=== PATIENT | female | born 1990 ===

== ENCOUNTER 2022-03-21 03:16 | Inpatient (IN) | payer SELFPAY ==
[2022-03-21] MEDS ORDERED: ACETAMINOPHEN 325 MG TAB PO PRN ×2 (04:13→13:16)
[2022-03-21] MEDS ORDERED: fentaNYL 100 MCG/2 ML INJ IV PRN (04:13)
[2022-03-21] MEDS ORDERED: TERBUTALINE 1 MG/1 ML INJ SUB-Q PRN (04:13)
[2022-03-21] MEDS ORDERED: MINERAL OIL 30 ML ORAL LIQD PO PRN (04:13)
[2022-03-21] MEDS ORDERED: miSOPROStol 200 MCG TAB PR PRN (04:13)
[2022-03-21] MEDS ORDERED: OXYTOCIN 10 UNIT/1 ML INJ IM PRN (04:13)
[2022-03-21] MEDS ORDERED: LOPERAMIDE 2 MG CAP PO PRN (04:13)
[2022-03-21] MEDS ORDERED: ePHEDrine SULFATE 50 MG/1 ML INJ IV PRN (04:13)
[2022-03-21] MEDS ORDERED: LIDOCAINE (2%) 20 MG/1 ML VIAL 20 ML MDV INFILTRATI ONE ×2 (04:13→09:44)
[2022-03-21] MEDS ORDERED: METHYLERGONOVINE MALEATE 0.2 MG/ML VIAL IM PRN (04:13)
[2022-03-21] MEDS ORDERED: NalbUPHINE 10 MG/1 ML INJ IV PRN (04:13)
[2022-03-21] MEDS ORDERED: CARBOPROST TROMETHAMINE 250 MCG/1 ML INJ IM PRN (04:13)
[2022-03-21] MEDS ORDERED: LACTATED RINGERS 1,000 ML IV SCH (04:15)
--- NOTE | 2022-03-21 04:24 | History and Physical Report ---
History of Present Illness Date of examination: 03/21/22 Date of admission: 03/21/22 Chief complaint: Contractions History of present illness: 32 year old presents to L&D with contractions and active labor. Patient received care at [facility] and she brings records with her. LMP 06/20/21. EDC 03/27/22. significant for the following: anemia. labs are as follows: A+, antibody screen negative, rubella immune, hepatitis B surface antigen negative, HIV negative, RPR nonreactive, gonorrhea negative, chlamydia negative, GBS negative, 1 hour sugar test WNL, quad screen negative, pap smear negative. Past History Past Medical History: other (anemia, treated with iron) Past Surgical History: no surgical history [employer] History: denies: abnormal PAP smear, chlamydia, gonorrhea, hepatitis B, hepatitis C, herpes, HIV, syphilis, trichomonas Family/Genetic History: none Social history: lives with family, full code. denies: smoking, alcohol abuse, prescription drug abuse, IV drug use - Obstetrical History Expected Date of Delivery: 03/27/22 Actual Gestation: 39 Week(s) 1 Day(s) : 2 Para: 1 Hx # Term Pregnancies: 1 Number of Pregnancies: 0 Spontaneous Abortions: 0 Induced : 0 Number of Living Children: 1 Medications and Allergies Allergies Allergy/AdvReac Type Severity Reaction Status Date / Time No Known Allergies Allergy Unverified 03/21/22 03:24 Active Meds: Active Medications Acetaminophen (Acetaminophen 325 Mg Tab) 650 mg PO Q4H PRN PRN Reason: Pain, Mild (1-3) Carboprost Tromethamine (Carboprost Tromethamine 250 Mcg/1 Ml Inj) 250 mcg IM ONCE PRN PRN Reason: Uterine Bleeding Ephedrine Sulfate (Ephedrine Sulfate 50 Mg/1 Ml Inj) 10 mg IV Q2M PRN PRN Reason: Hypotension Fentanyl (Fentanyl 100 Mcg/2 Ml Inj) 100 mcg IV Q2H PRN PRN Reason: Pain,Severe (7-10) LABOR PAIN Oxytocin/Sodium Chloride (Pitocin/Ns 30 Unit/500ml) 30 units in 500 mls @ 2 mls/hr IV TITR ZACARIAS; Protocol Lactated Ringer's (Lactated Ringers) 1,000 mls @ 125 mls/hr IV DIRECT ZACARIAS Oxytocin/Sodium Chloride (Pitocin/Ns 30 Unit/500ml) 30 units in 500 mls @ 40 mls/hr IV TITR ZACARIAS; Protocol Lidocaine (Lidocaine (2%) 20 Mg/1 Ml Vial 20 Ml Mdv) 20 ml INFILTRATI ONCE ONE Stop: 03/21/22 04:14 Loperamide HCl (Loperamide 2 Mg Cap) 2 mg PO ONCE PRN PRN Reason: give with Hemabate Methylergonovine Maleate (Methylergonovine Maleate 0.2 Mg/Ml Vial) 0.2 mg IM ONCE PRN PRN Reason: Uterine Bleeding Mineral Oil (Mineral Oil 30 Ml Oral Liqd) 30 ml PO QHS PRN PRN Reason: Constipation Misoprostol (Misoprostol 200 Mcg Tab) 800 mcg UT ONCE PRN PRN Reason: Uterine Bleeding Nalbuphine HCl (Nalbuphine 10 Mg/1 Ml Inj) 10 mg IV Q2H PRN PRN Reason: Pain, Moderate (4-6) Oxytocin (Oxytocin 10 Unit/1 Ml Inj) 10 unit IM ONCE PRN PRN Reason: Uterine Bleeding Terbutaline Sulfate (Terbutaline 1 Mg/1 Ml Inj) 0.25 mg SUB-Q ONCE PRN PRN Reason: Hyperstimulation/Hypertonicity Review of Systems All systems: negative (contractions) - Vital Signs Vital signs: Vital Signs Pulse Pulse Ox 85 97 03/21/22 03:32 03/21/22 03:32 Temp Pulse Resp BP Pulse Ox 77 98 03/21/22 04:12 03/21/22 04:12 - Physical Exam Abdomen: Positive: normal appearance, soft. Negative: distention, tenderness, g uarding, rigidity Genitourinary (Female): Positive: normal external genitalia, normal perenium. Negative: perineal/vulvar lesions Vagina: Positive: normal moisture Uterus: Positive: enlarged. Negative: tender Anus/Rectum: Positive: normal perianal skin Extremities: Negative: tenderness, edema - Obstetrical FHR: category 1 Uterine Contraction Monitor Mode: External Cervical Dilatation: 5 Cervical Effacement Percentage: 100 station: -1 Uterine Contraction Pattern: Regular Uterine Contraction Intensity: Moderate Results All other labs normal. Assessment and Plan A: at 39 weeks, 1 day gestation. Active labor. GBS negative. P: Admit. EFM. Epidural if desired. Anticipate vaginal .
[2022-03-21 04:31] LABS: Hematocrit 36.2 % (30.3-42.9); Hemoglobin 12.1 gm/dl (10.1-14.3); Mean Corpuscular HGB Conc 33 % (30-34); Mean Corpuscular Volume 91 fl (79-97); Platelet Count 179 K/mm3 (140-440); Red Blood Count 3.99 M/mm3 (3.65-5.03); Red Cell Distribution Width 14.7 % (13.2-15.2)
[2022-03-21] MEDS ORDERED: LIDOCAINE MPF (2%) 20 MG/1 ML VIAL 5 ML ONE (04:43)
[2022-03-21] MEDS ORDERED: OXYTOCIN DRIP 30 UNITS/500 ML BAG IV SCH ×3 (05:00→13:16)
--- NOTE | 2022-03-21 05:13 | Anesthesia Consultation ---
Anesthesia Consult and Med Hx - Airway Anesthetic Teeth Evaluation: Good ROM Head & Neck: Adequate Mental/Hyoid Distance: Adequate Mallampati Class: Class I Intubation Access Assessment: Probably Good - Pulmonary Exam CTA: Yes - Cardiac Exam Cardiac Exam: RRR - Pre-Operative Health Status ASA Pre-Surgery Classification: ASA2 Proposed Anesthetic Plan: Epidural - Pulmonary Hx Smoking: No Hx Asthma: No - Cardiovascular System Hx Hypertension: No - Central Nervous System Hx Seizures: No Hx Psychiatric Problems: No - Endocrine Hx Renal Disease: No Hx Hypothyroidism: No Hx Hyperthyroidism: No - Hematic Hx Anemia: No Hx Sickle Cell Disease: No - Other Systems Hx Alcohol Use: No
[2022-03-21] MEDS ORDERED: NALOXONE 0.4 MG/1 ML INJ IV PRN (05:14)
--- NOTE | 2022-03-21 05:19 | Progress Note ---
Regional Anesthesia Block - Regional Anesthesia Block Start Time: 04:58 Stop Time: 05:01 Performed By:: MIKA EASON Procedure: L3-4 space Identified, prep and drape NSF. Local to skin, introducer, ROLY saline and air at 5cm. Cath placed to 10 cm, neg aspiration, neg test dose. Sterile dressing, sampson well. Touhy 17g with 19 ga cath.
[2022-03-21] MEDS ORDERED: fentaNYL-BUPIV 2 MCG/ML-0.125% 200 MCG/100 ML BAG EPIDURAL SCH ×2 (06:00)
--- NOTE | 2022-03-21 07:11 | Event Note ---
Date: 03/21/22 SVE /-1.
--- NOTE | 2022-03-21 08:14 | Event Note ---
Date: 03/21/[address] De Souza at 07:46.
--- NOTE | 2022-03-21 10:02 | Procedure Note ---
OB Delivery Note - Delivery Date of Delivery: 03/21/22 Estimated blood loss: 300cc - Vaginal Delivery presentation: vertex Delivery position: OA Delivery induction: none Delivery augmentation: rupture of membranes Delivery monitor: external FHT, external uterine Route of delivery: Delivery placenta: spontaneous Delivery cord: 3 umbilical vessels Episiotomy: none Delivery laceration: 1st degree, 2nd degree, other (cervical laceration repaired with 0-vicryl x 2 figure of 8 sutures) Anesthesia: local, epidural - Infant A at 1 minute: 8 at 5 minutes: 9 Infant Gender: Male (wt 3130g)
[2022-03-21] MEDS ORDERED: miSOPROStol 25 MCG TAB PO PRN (12:17)
[2022-03-21] MEDS ORDERED: PROMETHAZINE 25 MG RECT SUPP PR PRN (13:16)
[2022-03-21] MEDS ORDERED: MAGNESIUM HYDROXIDE (MOM) ORAL LIQD UDC PO PRN (13:16)
[2022-03-21] MEDS ORDERED: PROMETHAZINE 25 MG TAB PO PRN (13:16)
[2022-03-21] MEDS ORDERED: oxyCODONE /ACETAMINOPHEN 5-325MG TAB PO PRN (13:16)
[2022-03-21] MEDS ORDERED: LANOLIN/ZINC/DIMETHICONE (LANSINOH) 7 GM TP PRN (13:16)
[2022-03-21] MEDS ORDERED: WITCH HAZEL/ GLYCERIN PAD TP PRN (13:16)
[2022-03-21] MEDS ORDERED: ONDANSETRON 4 MG/2 ML INJ IV PRN (13:16)
[2022-03-21] MEDS ORDERED: diphenhydrAMINE 25 MG CAP PO PRN (13:16)
[2022-03-21] MEDS ORDERED: BENZOCAINE/MENTHOL 20/0.5% TOP SPRAY 56 GM TP PRN (16:39)
[2022-03-21] MEDS ORDERED: IBUPROFEN 800 MG TAB PO PRN (18:54)
[2022-03-22 02:31] LABS: Hematocrit 32.2 % (30.3-42.9); Hemoglobin 10.4 gm/dl (10.1-14.3); Mean Corpuscular HGB Conc 32 % (30-34); Mean Corpuscular Volume 91 fl (79-97); Platelet Count 162 K/mm3 (140-440); Red Blood Count 3.54 M/mm3 (3.65-5.03); Red Cell Distribution Width 15.1 % (13.2-15.2)
--- NOTE | 2022-03-22 07:43 | Post Anesthesia Evaluation ---
- Post Anesthesia Evaluation Patient Participated: Yes Airway Patent: Yes Stable Respiratory Function: Yes Nausea/Vomiting: No Temp > 96.8F: Yes Pain Manageable: Yes Adequeate Hydration: Yes Anesthesia Complications: No Block Receding Appropriately: Yes Patient on Ventilator: No
[2022-03-22] MEDS ORDERED: FERROUS SULFATE 325 MG TAB PO SCH (10:00)
--- NOTE | 2022-03-22 11:13 | Progress Note ---
Assessment and Plan A: day 1 S/P . Anemia. P: Supplement with iron. Anticipate discharge home tomorrow morning if patient continues to do well. Subjective - Subjective Date of service: 03/22/22 Principal diagnosis: day 1 S/P Patient reports: appetite normal, voiding normally, pain well controlled, flatus, ambulating normally, no dizzy ambulation, no nauseated [place]: doing well Objective - Vital Signs Latest vital signs: Vital Signs Temp Pulse Resp BP BP Pulse Ox Pulse Ox 03/22/22 07:23 97.7 F 83 18 99/64 98 03/22/22 05:30 98 03/22/22 04:20 98 03/22/22 01:30 98 03/22/22 00:54 97.8 F 91 H 18 103/71 99 03/21/22 23:15 98 03/21/22 21:30 98 03/21/22 20:43 98.0 F 92 H 18 106/68 97 03/21/22 19:35 98 03/21/22 16:50 99.0 F 92 H 20 100/56 99 03/21/22 16:48 20 03/21/22 13:22 100 03/21/22 13:05 98.9 F 105 H 20 101/69 100 03/21/22 11:57 97 H 99 03/21/22 11:52 78 98 03/21/22 11:47 82 100 03/21/22 11:46 88 111/64 03/21/22 11:42 86 98 03/21/22 11:37 75 98 03/21/22 11:32 83 97 03/21/22 11:31 83 110/66 03/21/22 11:27 84 97 03/21/22 11:22 85 98 03/21/22 11:17 89 98 03/21/22 11:16 88 111/70 03/21/22 11:12 83 99 Intake and Output 03/21/22 03/22/22 03/22/22 23:59 07:59 15:59 Intake Total 300 240 120 Output Total 620 250 Balance -320 -10 120 Intake: Oral 300 240 120 Output: Urine 620 250 Void 620 250 Other: Total, Intake Amount 120 120 120 Total, Output Amount 300 250 # Voids Void 1 1 1 - Exam Cardiovascular: Present: Regular rate Lungs: Present: Clear to auscultation Abdomen: Present: normal appearance, soft. Absent: distention, tenderness, guarding, rigidity Uterus: Present: normal, firm, fundal height below umbilicus (fundus firm and midline at 2 FB below umbilicus). Absent: bogginess, tenderness Extremities: Absent: tenderness - Labs Labs: Abnormal lab results 03/21/22 Range/Units 23:13 WBC 12.3 H (4.5-11.0) K/mm3 RBC 3.54 L (3.65-5.03) M/mm3
--- NOTE | 2022-03-22 12:52 | Event Note ---
Date: 03/22/22 Patient requests discharge home today as baby is being discharged today. Discussed with patient discharge instructions and warning signs. Advised patient to continue taking her vitamin and iron supplements at home. Advised patient to follow up at [facility] in 2 weeks.
--- NOTE | 2022-03-22 12:54 | Discharge Summary ---
Providers - Providers Date of Admission: 03/21/22 04:13 Date of discharge: 03/22/22 Attending physician: LORRAINE DARDEN Primary care physician: LORRAINE DARDEN Hospitalization Reason for admission: active labor Delivery: Laceration: 1st degree, 2nd degree Other procedures: none complications: none Discharge diagnosis: IUP at term delivered baby: male Pertinent studies: Labs Hospital course: Stable hospital course Condition at discharge: Good Disposition: 01 HOME / SELF CARE / HOMELESS - Discharge Diagnoses (1) Term delivered Status: Acute Plan - Provider Discharge Summary Activity: routine, no sex for 6 weeks, no heavy lifting 4 weeks, no strenuous exercise Diet: routine Instructions: routine Additional instructions: Continue taking your vitamin and iron supplements at home. Follow up at [facility] in 2 weeks. Call your doctor immediately for: * Fever > 100.5 * Heavy vaginal bleeding ( >1 pad per hour) * Severe persistent headache * Shortness of breath * Reddened, hot, painful area to leg or breast - Follow up plan Follow up: [facility] [Referring] - 14 Days
[2022-03-22 16:02] VITALS: BP 111/77
== END 2022-03-22 16:15 | disposition home or self-care (01) | DRG 807 ==
LOC: TRG 03:16 → APU 03:29 → LD 04:13 → TRG 04:13 → LD 04:24 → OB 13:10
PROVIDERS: ADMIT Obstetrics & Gynecology; ATTEND Obstetrics & Gynecology
PROC: 10E0XZZ Delivery of Products of Conception, External Approach (ICD-10-PCS; principal; 2022-03-21)
PROC: 0KQM0ZZ Repair Perineum Muscle, Open Approach (ICD-10-PCS; 2022-03-21)
PROC: 3E0R3BZ Introduction of Anesthetic Agent into Spinal Canal, Percutaneous Approach (ICD-10-PCS; 2022-03-21)
PROC: 00HU33Z Insertion of Infusion Device into Spinal Canal, Percutaneous Approach (ICD-10-PCS; 2022-03-21)
DX: O70.1 Second degree perineal laceration during delivery (principal); Z37.0 Single live birth; Z3A.39 39 weeks gestation of pregnancy; O90.81 Anemia of the puerperium; Z20.822 Contact with and (suspected) exposure to COVID-19
CPT/HCPCS: 36415; 59025; 85027; 86592; 86850; 86900; 86901; 96360; G0378; J3490; U0003